=== PATIENT | male | born 2000 | race Caucasian/White ===

== ENCOUNTER 2023-03-02 23:58 | Emergency (ER) | payer OTHER ==
[~2023-03-02] VITALS: Ht 170.1 cm; Wt 55.8 kg
[2023-03-03] MEDS ORDERED: PROMETHAZINE INJ 25 MG/ML VIAL IM ONE (00:15)
--- NOTE | 2023-03-03 00:15 | ED General ---
General Stated Complaint: VOMITING|BLURRED VISION|CHILLS|SOB Source of Information: Patient Exam Limitations: No Limitations History of Present Illness Date Seen by Provider: Mar 03, 2023 Time Seen by Provider: 00:05 Initial Comments 23-year-old male presents for alcohol intoxication. He states he drinks heavily daily, typically Everclear. He is concerned because he was vomiting this evening. He states he typically does not vomit with his alcohol use. He also feels as though the room is spinning and was not able to go to sleep. He denies any fevers or chills. Emesis is nonbloody and nonbilious. All other systems reviewed and negative except documented per HPI. Voice recognition software was used to help create this chart Allergies and Home Medications Allergies Coded Allergies: No Known Drug Allergies (Unverified , 03/03/23) Patient Home Medication List Home Medication List Reviewed: Yes Review of Systems Review of Systems Constitutional: see HPI Past Inndnmm-[id number]-Drifud Hx Patient Social History Tobacco Use?: Yes Use of E-Cig and/or Vaping dev: No Substance use?: No Alcohol Use?: Yes Physical Exam Vital Signs Capillary Refill : Height, Weight, BMI Height: '" Weight: lbs. oz. kg; BMI Method: General Appearance: No Apparent Distress, WD/WN, Other (Slurred speech) Eyes: Bilateral Eye Normal Inspection, Bilateral Eye PERRL, Bilateral Eye EOMI HEENT: PERRL/EOMI, Normal ENT Inspection, Pharynx Normal Neck: Supple Respiratory: Chest Non Tender, Lungs Clear, Normal Breath Sounds, No Accessory Muscle Use, No Respiratory Distress Cardiovascular: Regular Rate, Rhythm, No Murmur, Normal Peripheral Pulses Gastrointestinal: Normal Bowel Sounds, No Organomegaly, Non Tender, Soft Extremity: Normal Capillary Refill Neurologic/Psychiatric: Alert, Oriented x3 Skin: Normal Color, Warm/Dry Progress/Results/Core Measures Suspected Sepsis SIRS Temperature: Pulse: Respiratory Rate: Blood Pressure / Mean: Results/Orders My Orders Orders - KATIA MATTSON DO Promethazine Injection (Promethazine I (03/03/23 00:15) Vital Signs/I&O Capillary Refill : Departure Communication (Admissions) Patient is hemodynamically stable, neurologically intact. He is clearly intoxicated, mildly combative. His ex-girlfriend brought him here asking for help with his vomiting. Given IM Phenergan and he is discharged in stable condition. Impression Primary Impression: Alcohol intoxication Qualified Codes: F10.920 - Alcohol use, unspecified with intoxication, uncomplicated Disposition: 01 HOME, SELF-CARE Condition: Stable Departure-Patient Inst. Patient Instructions: Alcohol Use Disorder ED Add. Discharge Instructions: You should get help to quit alcohol use. If you continue this way you will get cirrhosis, liver failure, which is irreversible. I have given you a shot of nausea medicine which will make you drowsy. Do not drive. Return to the emergency department for any severe concerns. KATIA MATTSON DO Mar 03, 2023 00:14
[2023-03-03] MEDS ORDERED: PROMETHAZINE 25 MG TABLET PO ONE (00:30)
[2023-03-03 00:40] VITALS: BP 134/79
== END 2023-03-03 00:40 | disposition home or self-care (01) ==
LOC: ER FS 03-03 00:02
DX: F10.129 Alcohol abuse with intoxication, unspecified (principal); Z72.0 Tobacco use; Z28.310 Unvaccinated for COVID-19
CPT/HCPCS: 99285